=== PATIENT | female | born 1995 | race Two or more races ===

== ENCOUNTER 2017-04-25 00:17 | Emergency (ER) | payer MEDICAID ==
[~2017-04-25] VITALS: Ht 167.6 cm; Wt 86.2 kg
[~2017-04-25 00:17] MED LIST: ALBUTEROL SULF8.5 GM INH; AZITHROMYCIN250 MG ORAL; DOXYCYCLINE MO100 MG ORAL; GUAIFENESIN-CO118 M1 PO; IBUPROFEN600 MG ORAL; PENICILLIN V P500 MG PO; PREDNISONE20 MG ORAL; PREDNISONE50 MG ORAL
[2017-04-25] MEDS ORDERED: Naproxen 500mg tab ORAL ONE (01:00)
[2017-04-25 01:55] LABS: EOSINOPHILS % (AUTO) 1.3 % (0.0-3.0); MEAN CORPUSCULAR HEMOGLOBIN 28.5 PG (27.0-31.0); MEAN CORPUSCULAR HGB CONC 33.1 G/DL (32.0-36.0); MEAN CORPUSCULAR VOLUME 86 FL (80-99); MEAN PLATELET VOLUME 6.3 FL (6.5-10.1); MONOCYTES % (AUTO) 6.8 % (1.0-10.0); NEUTROPHILS % (AUTO) 66.9 % (45.0-75.0); PLATELET COUNT 371 K/UL (150-450); RED BLOOD COUNT 4.54 M/UL (4.20-5.40); RED CELL DISTRIBUTION WIDTH 12.5 % (11.6-14.8); WHITE BLOOD COUNT 9.7 K/UL (4.8-10.8)
[2017-04-25 02:03] LABS: KETONES,URINE NEGATIVE (NEGATIVE); LEUKOCYTE ESTERASE ,URINE 1+ (NEGATIVE); NITRITE,URINE NEGATIVE (NEGATIVE); PH,URINE 6 (4.5-8.0); PROTEIN,URINE NEGATIVE (NEGATIVE); UROBILINOGEN,URINE 1 MG/DL (0.0-1.0)
[2017-04-25 02:05] LABS: APPEARANCE,URINE CLEAR
[2017-04-25 02:07] LABS: ALANINE AMINOTRANSFERASE 19 U/L (3-33); ALBUMIN/GLOBULIN RATIO 1.2 (1.0-2.7); ANION GAP 13 (5-15); ASPARTATE AMINO TRANSFERASE 15 U/L (5-40); CALCIUM 9.4 mg/dL (8.6-10.2); CARBON DIOXIDE 25 mEQ/L (20-30); CHLORIDE 97 mEQ/L (98-107); CREATININE 0.8 mg/dL (0.5-0.9); GLOMERULAR FILTRATION RATE > 60 mL/min (>60); HEMOLYSIS 7; POTASSIUM 3.9 mEQ/L (3.4-4.9); SODIUM 135 mEQ/L (135-145); TOTAL PROTEIN 7.9 g/dL (6.6-8.7); URIC ACID 5.6 mg/dL (3.0-7.5)
[2017-04-25 02:08] LABS: BACTERIA,URINE FEW /HPF; RBC,URINE 0-2 /HPF (0 - 2); SQUAMOUS EPITHELIAL CELL,UR FEW /LPF (NONE/OCC)
[2017-04-25 03:01] LABS: ERYTHROCYTE SEDIMENTATION RATE 26 MM/HR (0-20)
--- NOTE | 2017-04-25 03:23 | Emergency Room Report ---
History of Present Illness General Chief Complaint: Pain Source: Patient Present Illness HPI Patient with 3 weeks of bone pain in mainly arms, but also legs. Also some fatigue. No fevers. No rashes. No abdominal, chest pain. No dyspnea. Moving bowels normally. Pain is 5/10, constant. No radiation, aching. Normal period. No h/o diabetes. No thyroid problems known. Studying for medicine. Concern over critical illness which would prevent from achieving this. Has anxiety. H/O asthma which has been stable. Allergies: Coded Allergies: No Known Allergies (Unverified , 03/02/13) Patient History Past Medical History: see triage record Social History: Denies: alcohol use, drug use, smoking Social History Narrative student Last Menstrual Period: 04/11/17 Now: No : 0 Para: 0 Reviewed Nursing Documentation: PMH: Agreed, PSxH: Agreed Nursing Documentation-PMH Hx Asthma: Yes Review of Systems All Other Systems: negative except mentioned in HPI Physical Exam Vital Signs Date Time Temp Pulse Resp B/P Pulse Ox O2 Delivery O2 Flow Rate FiO2 04/25/17 00:42 98.2 92 14 134/70 99 Sp02 EP Interpretation: reviewed, normal General Appearance: well appearing, no apparent distress, GCS 15 Head: normocephalic, atraumatic Eyes: bilateral eye PERRL, bilateral eye normal inspection ENT: moist mucus membranes Neck: supple Respiratory: lungs clear, normal breath sounds Cardiovascular #1: regular rate, rhythm Cardiovascular #2: 2+ radial (R) Gastrointestinal: normal inspection, normal bowel sounds, non tender, no mass, non-distended Musculoskeletal: back normal, gait/station normal, normal range of motion Neurologic: alert, oriented x3, 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 Differential is broad. Inflammatory arthritis , viral syndrome, electrolyte abnormality (calcium/potassium), occult infection , diabetes, thyroid disorders, renal dysfunction, anxiety/depression amongst others. Evaluation with labs and UA. Labs normal except for minimally elevated ESR. Discussed possible etiologies. Re-assured, but told needs further w/u. Discussed with mother also. Patient stable for outpatient observation and treatment. Laboratory Tests Test 04/25/17 01:30 04/25/17 01:40 Urine Color Yellow Urine Appearance Clear Urine pH 6 (4.5-8.0) Urine Specific [place] 1.020 (1.005-1.035) Urine Protein Negative (NEGATIVE) Urine Glucose (UA) Negative (NEGATIVE) Urine Ketones Negative (NEGATIVE) Urine Occult Blood Negative (NEGATIVE) Urine Nitrite Negative (NEGATIVE) Urine Bilirubin Negative (NEGATIVE) Urine Urobilinogen 1 MG/DL (0.0-1.0) H Urine Leukocyte Esterase 1+ (NEGATIVE) H Urine RBC 0-2 /HPF (0 - 2) Urine WBC 2-4 /HPF (0 - 2) Urine Squamous Epithelial Cells Few /LPF (NONE/OCC) Urine Bacteria Few /HPF (NONE) Urine HCG, Qualitative Negative Urine Opiates Screen Negative (NEGATIVE) Urine Barbiturates Screen Negative (NEGATIVE) Phencyclidine (PCP) Screen Negative (NEGATIVE) Urine Amphetamines Screen Negative (NEGATIVE) Urine Benzodiazepines Screen Negative (NEGATIVE) Urine Cocaine Screen Negative (NEGATIVE) Urine Marijuana (THC) Screen Negative (NEGATIVE) White Blood Count 9.7 K/UL (4.8-10.8) Red Blood Count 4.54 M/UL (4.20-5.40) Hemoglobin 12.9 G/DL (12.0-16.0) Hematocrit 39.0 % (37.0-47.0) Mean Corpuscular Volume 86 FL (80-99) Mean Corpuscular Hemoglobin 28.5 PG (27.0-31.0) Mean Corpuscular Hemoglobin Concent 33.1 G/DL (32.0-36.0) Red Cell Distribution Width 12.5 % (11.6-14.8) Platelet Count 371 K/UL (150-450) Mean Platelet Volume 6.3 FL (6.5-10.1) L Neutrophils (%) (Auto) 66.9 % (45.0-75.0) Lymphocytes (%) (Auto) 24.0 % (20.0-45.0) Monocytes (%) (Auto) 6.8 % (1.0-10.0) Eosinophils (%) (Auto) 1.3 % (0.0-3.0) Basophils (%) (Auto) 1.0 % (0.0-2.0) Erythrocyte Sedimentation Rate 26 MM/HR (0-20) H Sodium Level 135 mEQ/L (135-145) Potassium Level 3.9 mEQ/L (3.4-4.9) Chloride Level 97 mEQ/L (98-107) L Carbon Dioxide Level 25 mEQ/L (20-30) Anion Gap 13 (5-15) Blood Urea Nitrogen 14 mg/dL (7-23) Creatinine 0.8 mg/dL (0.5-0.9) Estimate Glomerular Filtration Rate > 60 mL/min (>60) Glucose Level 116 mg/dL (74-106) H Uric Acid 5.6 mg/dL (3.0-7.5) Calcium Level 9.4 mg/dL (8.6-10.2) Total Bilirubin < 0.2 mg/dL (0.0-1.2) Aspartate Amino Transferase (AST) 15 U/L (5-40) Alanine Aminotransferase (ALT) 19 U/L (3-33) Alkaline Phosphatase 79 U/L (35-104) Total Creatine Kinase 69 U/L (26-140) C-Reactive Protein, Quantitative 1.0 mg/dL (< 0.5) H Total Protein 7.9 g/dL (6.6-8.7) Albumin 4.4 g/dL (3.5-5.2) Globulin 3.5 g/dL Albumin/Globulin Ratio 1.2 (1.0-2.7) Thyroid Stimulating Hormone (TSH) 2.430 uIU/mL (0.300-4.500) Chest X-Ray Diagnostic Results Chest X-Ray Diagnostic Results : Chest X-Ray Ordered: Yes # of Views/Limited/Complete: 1 View Indication: Other EP Interpretation: Yes Interpretation: no consolidation, no effusion, no pneumothorax, no acute cardiopulmonary disease Impression: No acute disease Interpreting ER Provider: Electronically signed by Cristhian Slade MD Last Vital Signs Date Time Temp Pulse Resp B/P Pulse Ox O2 Delivery O2 Flow Rate FiO2 04/25/17 03:51 98.3 73 14 134/70 99 Status: improved Disposition: HOME, SELF-CARE Condition: Improved Scripts Tramadol Hcl* (ULTRAM*) 50 Mg Tablet 50 MG ORAL Q6H Y for For Pain, #10 TAB 0 Refills Prov: Cristhian Slade M.D. 04/25/17 Naproxen* (NAPROSYN*) 375 Mg Tablet 375 MG ORAL TID, #20 TAB 0 Refills Prov: Cristhian Slade M.D. 04/25/17 Referrals: NON PHYSICIAN (PCP) Cristhian Slade M.D. Apr 25, 2017 03:23
[2017-04-25] MEDS ORDERED: NAPROXEN375 MG ORAL (03:27)
[2017-04-25] MEDS ORDERED: TRAMADOL HCL50 MG ORAL (03:27)
[2017-04-25 03:48] VITALS: BP 134/70
[2017-04-25 03:51] VITALS: BP 134/70
--- NOTE | 2017-04-25 09:23 | Diagnostic Imaging Report ---
Indication: CP Technique: XRAY CHEST 1 V Comparison: 01/23/2014. Findings: The cardiomediastinal silhouette is normal. The lungs are clear. There is no evidence of pleural fluid. The bones are unremarkable. Impression: Normal chest.
== END 2017-04-25 03:52 | disposition home or self-care (01) ==
LOC: EMR 01:10
DX: M89.8X9 Other specified disorders of bone, unspecified site (principal); R53.83 Other fatigue; J45.909 Unspecified asthma, uncomplicated
CPT/HCPCS: 36415; 71010; 80053; 80300; 81003; 81025; 82550; 84443; 84550; 85025; 85651; 86140; 99284

== ENCOUNTER 2017-09-16 22:54 | Emergency (ER) | payer MEDICAID ==
[~2017-09-16] VITALS: Ht 167.6 cm; Wt 90.7 kg
[~2017-09-16 22:54] MED LIST changes: +NAPROXEN375 MG ORAL; +TRAMADOL HCL50 MG ORAL
[2017-09-16 23:25] VITALS: BP 130/83
--- NOTE | 2017-09-16 23:37 | Emergency Room Report ---
History of Present Illness General Chief Complaint: Abdominal Pain Source: Patient Present Illness HPI Is a 21-year-old female with no past medical history patient present with chief complaint of abdominal pain. Localized to the left lower caught in/pelvic area. Onset for last couple months. Seen her DrNita and urine was normal. She was given ibuprofen is not helping. Worse when he try to urinate. Has pressure to urinate but doesn't feel that she can't completely empty her bladder. When she tried hold her urine she has pain. Allergies: Coded Allergies: No Known Allergies (Unverified , 03/02/13) Patient History Past Medical History: see triage record, old chart reviewed Past Surgical History: none Pertinent Family History: none Social History: Denies: smoking Last Menstrual Period: Aug Now: No Immunizations: other Reviewed Nursing Documentation: PMH: Agreed, PSxH: Agreed Nursing Documentation-PMH Hx Asthma: Yes Review of Systems Eye: Denies: eye pain, blurred vision ENT: Denies: ear pain, nose congestion, throat swelling Respiratory: Denies: cough, shortness of breath Cardiovascular: Denies: chest pain, palpitations Gastrointestinal: Reports: abdominal pain, Denies: diarrhea, nausea, vomiting Musculoskeletal: Denies: back pain, joint pain Skin: Denies: rash Neurological: Denies: headache, numbness Endocrine: Denies: increased thirst, increased urine Hematologic/Lymphatic: Denies: easy bruising All Other Systems: negative except mentioned in HPI Physical Exam Vital Signs Date Time Temp Pulse Resp B/P (MAP) Pulse Ox O2 Delivery O2 Flow Rate FiO2 09/16/17 23:14 98.1 101 16 130/83 98 Room Air vitals normal Sp02 EP Interpretation: reviewed, normal General Appearance: well appearing, no apparent distress, alert Head: normocephalic, atraumatic Eyes: bilateral eye PERRL, bilateral eye EOMI ENT: hearing grossly normal, normal pharynx Neck: full range of motion, supple, no meningismus Respiratory: chest non-tender, lungs clear, normal breath sounds Cardiovascular #1: regular rate, rhythm, no murmur Gastrointestinal: normal bowel sounds, no mass, no organomegaly, no bruit, non- distended, tenderness - Left lower quadrant Musculoskeletal: back normal, gait/station normal, normal range of motion Psychiatric: mood/affect normal Skin: warm/dry Medical Decision Making Diagnostic Impression: Primary Impression: Abdominal pain Qualified Codes: R10.30 - Lower abdominal pain, unspecified Additional Impression: Ovarian cyst Qualified Codes: N83.202 - Unspecified ovarian cyst, left side ER Course Patient with abdominal pain. No evidence of acute abdomen. No evidence of torsion. No ectopic. She does have an ovarian cyst that is probably causing the pain. Better now. We'll discharge home. Lab Results Impression labs normal CT/MRI/US Diagnostic Results CT/MRI/US Diagnostic Results : Imaging Test Ordered: CT abdomen and pelvis Impression Read by radiologist. 4 cm left ovarian cyst. Last Vital Signs Date Time Temp Pulse Resp B/P (MAP) Pulse Ox O2 Delivery O2 Flow Rate FiO2 09/16/17 23:14 98.1 101 16 130/83 98 Room Air Status: improved Disposition: HOME, SELF-CARE Condition: Stable Scripts Ibuprofen* (MOTRIN*) 600 Mg Tablet 600 MG ORAL THREE TIMES A DAY, #30 TAB 0 Refills Prov: JUAN MIGUEL RODRIGUEZ M.D. 09/17/17 Additional Instructions: Followup with your DrNita in 7 days. Return if worse. JUAN MIGUEL RODRIGUEZ M.D. Sep 16, 2017 23:37
[2017-09-16 23:52] LABS: APPEARANCE,URINE SLIGHTLY CLOUDY; KETONES,URINE NEGATIVE (NEGATIVE); LEUKOCYTE ESTERASE ,URINE 1+ (NEGATIVE); NITRITE,URINE NEGATIVE (NEGATIVE); PH,URINE 6 (4.5-8.0); PROTEIN,URINE 1+ (NEGATIVE); UROBILINOGEN,URINE 4 MG/DL (0.0-1.0)
[2017-09-16 23:53] LABS: BASOPHILS % (AUTO) 1.6 % (0.0-2.0); EOSINOPHILS % (AUTO) 1.7 % (0.0-3.0); LYMPHOCYTES % (AUTO) 23.6 % (20.0-45.0); MEAN CORPUSCULAR HEMOGLOBIN 27.4 PG (27.0-31.0); MEAN CORPUSCULAR HGB CONC 32.7 G/DL (32.0-36.0); MEAN CORPUSCULAR VOLUME 84 FL (80-99); MEAN PLATELET VOLUME 5.8 FL (6.5-10.1); MONOCYTES % (AUTO) 7.5 % (1.0-10.0); NEUTROPHILS % (AUTO) 65.5 % (45.0-75.0); PLATELET COUNT 384 K/UL (150-450); RED BLOOD COUNT 4.82 M/UL (4.20-5.40); RED CELL DISTRIBUTION WIDTH 12.9 % (11.6-14.8); WHITE BLOOD COUNT 11.3 K/UL (4.8-10.8)
[2017-09-17 00:03] LABS: ANION GAP 11 mmol/L (5-15); CALCIUM 9.3 MG/DL (8.5-10.1); CARBON DIOXIDE 26 MMOL/L (21-32); CHLORIDE 102 MMOL/L (98-107); CREATININE 0.9 MG/DL (0.55-1.30); GLOMERULAR FILTRATION RATE > 60 mL/min (>60); POTASSIUM 3.9 MMOL/L (3.5-5.1); SODIUM 139 MMOL/L (136-145)
[2017-09-17 00:07] LABS: ALANINE AMINOTRANSFERASE 50 U/L (12-78); ALBUMIN/GLOBULIN RATIO 0.8 (1.0-2.7); ASPARTATE AMINO TRANSFERASE 39 U/L (15-37); LIPASE 220 U/L (73-393); TOTAL PROTEIN 8.5 G/DL (6.4-8.2)
[2017-09-17 00:11] LABS: BACTERIA,URINE OCCASIONAL /HPF; MUCUS,URINE MODERATE /LPF (NONE/OCC); RBC,URINE 0-2 /HPF (0 - 2); SQUAMOUS EPITHELIAL CELL,UR OCCASIONAL /LPF (NONE/OCC)
[2017-09-17] MEDS ORDERED: IBUPROFEN600 MG ORAL (01:25)
[2017-09-17 01:44] VITALS: BP 119/65
[2017-09-17 01:48] VITALS: BP 119/65
--- NOTE | 2017-09-17 10:20 | Diagnostic Imaging Report ---
Indication: Abdominal pain Technique: CT scan of the abdomen and pelvis utilizing automated exposure control without intravenous or oral contrast. Axial, sagittal and coronal images were obtained. CT dose: Total DLP 1167 mGycm; CTDI vol 21.4 mGy Comparison: None Findings: Evaluation of the solid organs is limited without intravenous contrast material. There is minimal atelectasis of the lung bases. The liver, adrenal glands, spleen and pancreas are unremarkable. No CT evident gallstones are seen. There is no hydronephrosis. No renal or ureteral calculi are identified. The small bowel loops are normal in caliber. The appendix is normal. There is no free intraperitoneal fluid or air. There is a left adnexal 4.4 cm cystic structure. Uterus and right adnexa are grossly unremarkable. Bladder is not well distended limiting evaluation. Endplate Schmorl's nodes of the spine are noted. Mesenteric nodes measure up to 1.5 cm. Impression: No hydronephrosis, renal or ureteral calculi. Approximately 4.4 cm left ovarian cystic structure. Correlation with ultrasound recommended. Gastric distention with debris. Clinical correlation recommended. Mesenteric nodes measuring up to 1.5 cm. Clinical correlation recommended. The CT scanner at [facility] is accredited by the [employer] and the scans are performed using protocols designed to limit radiation exposure to as low as reasonably achievable to attain images of sufficient resolution adequate for diagnostic evaluation.
== END 2017-09-17 01:45 | disposition home or self-care (01) ==
LOC: EMR 23:59
DX: R10.9 Unspecified abdominal pain (principal); N83.202 Unspecified ovarian cyst, left side
CPT/HCPCS: 36415; 74176; 80053; 81003; 81025; 83690; 85025; 99284

== ENCOUNTER 2019-10-02 16:18 | Emergency (ER) | payer SELFPAY ==
[~2019-10-02] VITALS: Ht 167.6 cm; Wt 95.3 kg
[2019-10-02 16:40] VITALS: BP 115/71
[2019-10-02] MEDS ORDERED: Albuterol ud Inhalation HHN ONE (16:45)
--- NOTE | 2019-10-02 16:48 | Emergency Room Report ---
History of Present Illness General Chief Complaint: Upper Respiratory Illness Source: Patient Present Illness HPI 24-year-old female presents with constant cough for 3 weeks. Cough is dry and sometimes results in posttussive vomiting, nonbloody. She also reports some shortness of breath while coughing, rhinorrhea, and congestion in her ears. She denies any fever, chest pain, abdominal pain, sore throat, hemoptysis, recent travel or surgery, calf pain or swelling. Denies smoking or vaping. Patient reports that she has been dealing with these symptoms her whole life on and off. She has seen a farm mechanic apprentice and been treated with inhalers in the past but has never formally been diagnosed with asthma. She is supposed to see an avid editor but has not yet. She has used her inhaler and [id number] medications with no relief. Patient is currently on her period, denies chance of . Allergies: Coded Allergies: No Known Allergies (Unverified , 03/02/13) Patient History Past Medical History: see triage record Now: No Reviewed Nursing Documentation: PMH: Agreed; PSxH: Agreed Nursing Documentation-PMH Past Medical History: No Stated History Hx Asthma: Yes Review of Systems All Other Systems: negative except mentioned in HPI Physical Exam Vital Signs Date Time Temp Pulse Resp B/P (MAP) Pulse Ox O2 Delivery O2 Flow Rate FiO2 10/02/19 16:12 98.4 97 19 151/83 (105) 100 Room Air Sp02 EP Interpretation: reviewed, normal General Appearance: no apparent distress, alert, GCS 15, non-toxic Head: normocephalic, atraumatic Eyes: bilateral eye normal inspection, bilateral eye PERRL ENT: hearing grossly normal, normal pharynx, no angioedema, normal voice Neck: full range of motion, supple/symm/no masses Respiratory: chest non-tender, lungs clear, normal breath sounds, no respiratory distress, no accessory muscle use, speaking full sentences Cardiovascular #1: regular rate, rhythm, no edema Neurologic: alert, oriented x3, responsive, speech normal Psychiatric: judgement/insight normal, mood/affect normal Lymphatic: no adenopathy Medical Decision Making PA Attestation Dr. Flores is my supervising physician whom patient management and care has been discussed with. Diagnostic Impression: Primary Impression: Cough ER Course Pt. presents to the ED c/o cough for 3 weeks. Ddx considered but are not limited to bronchitis, pneumonia, postnasal drip, asthma Vital signs: are WNL, pt. is afebrile H&PE are most consistent with chronic cough ORDERS: Chest x-ray shows no evidence of acute disease. ED INTERVENTIONS: Given albuterol nebulizer treatment with some relief. DISCHARGE: At this time pt. is stable for d/c to home. Will provide printed patient care instructions, and prescriptions for Prednisone and Phenergan DM. Advised to follow up with PCP for further evaluation and treatment. Care plan and follow up instructions have been discussed with the patient prior to discharge. Return precautions given. Chest X-Ray Diagnostic Results Chest X-Ray Diagnostic Results : Chest X-Ray Ordered: Yes # of Views/Limited/Complete: 2 View Indication: Other - cough EP Interpretation: Yes RICKY Xray: Interpretation reviewed, by supervising MD, and agrees with findings. Interpretation: no consolidation, no effusion, no pneumothorax, no acute cardiopulmonary disease Impression: No acute disease Electronically Signed by: Ivelisse Sheppard PA-C Last Vital Signs Date Time Temp Pulse Resp B/P (MAP) Pulse Ox O2 Delivery O2 Flow Rate FiO2 10/02/19 16:12 98.4 97 19 151/83 (105) 100 Room Air Disposition: HOME, SELF-CARE Condition: Stable Scripts Benzonatate* (BENZONATATE*) 200 Mg Capsule 200 MG ORAL THREE TIMES A DAY, #30 PERLE Prov: Ivelisse Sheppard N. P.A. 10/02/19 Prednisone* (PREDNISONE*) 20 Mg Tablet 20 MG ORAL TID, #15 TAB 0 Refills Prov: Ivelisse Sheppard P.A. 10/02/19 D-Methorphan Hb/Prometh Hcl* (PROMETHAZINE-DM SYRUP*) 118 Ml Syrup 5 ML ORAL Q4H PRN for For Cough, #120 ML 0 Refills Prov: Ivelisse Sheppard N. P.A. 10/02/19 Referrals: NOT CHOSEN [facility]/,REFERRING (PCP) Ivelisse Sheppard P.ANita Oct 02, 2019 16:48
--- NOTE | 2019-10-02 17:08 | Diagnostic Imaging Report ---
Indication: Reason For Exam: COUGH Technique: One view of the chest Comparison: none Findings: Lungs and pleural spaces are clear. Heart size is normal. Azygos lobe and fissure-normal anatomic variant-incidentally noted. No significant interim change Impression: No acute process
[2019-10-02] MEDS ORDERED: PROMETHAZINE-D118 ML ORAL (17:19)
[2019-10-02] MEDS ORDERED: PREDNISONE20 MG ORAL (17:19)
[2019-10-02] MEDS ORDERED: BENZONATATE200 MG ORAL (17:41)
[2019-10-02] MEDS ORDERED: Promethazine/Codeine 5ml UD ORAL ONE (18:00)
[2019-10-02 18:10] VITALS: BP 128/81
== END 2019-10-02 18:10 | disposition home or self-care (01) ==
LOC: EDBD 16:18 → EMR 16:28
DX: R05 Cough (principal); R11.10 Vomiting, unspecified
CPT/HCPCS: 71045; 99284; J7512

== ENCOUNTER 2020-06-10 04:20 | Emergency (ER) | payer MEDICAID ==
[~2020-06-10] VITALS: Ht 165.1 cm; Wt 104.3 kg
[~2020-06-10 04:20] MED LIST changes: +BENZONATATE200 MG ORAL; +PROMETHAZINE-D118 ML ORAL
[2020-06-10 04:40] VITALS: BP 113/74
--- NOTE | 2020-06-10 04:40 | NUR ---
ED Nurse Note: Patient walked into ED c/o throat tightness for an unknown time now, states that this problem has been presistent and has seen multiple doctors for it however states that the problem still has not resolved, complains of no pain at this time. patient satting at 100% on room air and is able to swallow. exam was done by ERMMarj at bedside states that throat is not closing up and patient's lungs are clear. patient is alert and oriented x4, will wait for further orders
[2020-06-10 05:05] VITALS: BP 122/70
--- NOTE | 2020-06-10 05:05 | NUR ---
AMA: Patient has signed AMA form. patient understands the risks of leaving AMA such as . patient is fully aware. Dr. Junior at bedside to explain. patient ambulated out of ED accompanied by brother, ambulated with a steady gait.patient has taken all belongings
--- NOTE | 2020-06-13 15:23 | Emergency Room Report ---
History of Present Illness General Chief Complaint: Upper Respiratory Illness Source: Patient Present Illness HPI 24-year-old female presents the ED complaining of shortness of breath. Describes tightness in her throat and difficulty breathing. Denies any cough. Denies any fevers or chills. States she has been told she has asthma and has used inhalers in the past. Denies sick contacts or recent travel. Denies leg swelling. Denies chest pain. No other aggravating relieving factors. 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 Patient History Past Medical History: asthma Past Surgical History: none Pertinent Family History: none Social History: Denies: smoking, alcohol use, drug use Last Menstrual Period: 04/2020 Now: No Immunizations: UTD Reviewed Nursing Documentation: PMH: Agreed; PSxH: Agreed Nursing Documentation-PMH Hx Asthma: Yes - chronic cough Review of Systems All Other Systems: negative except mentioned in HPI Physical Exam Vital Signs Date Time Temp Pulse Resp B/P (MAP) Pulse Ox O2 Delivery O2 Flow Rate FiO2 06/10/20 04:27 98.8 100 18 113/74 (87) 96 Room Air Sp02 EP Interpretation: reviewed, normal General Appearance: no apparent distress, alert, GCS 15, non-toxic Head: normocephalic, atraumatic Eyes: bilateral eye normal inspection, bilateral eye PERRL ENT: hearing grossly normal, normal pharynx, no angioedema, normal voice Neck: full range of motion, supple/symm/no masses Respiratory: chest non-tender, lungs clear, normal breath sounds, speaking full sentences Cardiovascular #1: regular rate, rhythm, no edema Cardiovascular #2: 2+ carotid (R), 2+ carotid (L), 2+ radial (R), 2+ radial (L) , 2+ dorsalis pedis (R), 2+ dorsalis pedis (L) Gastrointestinal: normal bowel sounds, non tender, soft, non-distended, no guarding, no rebound Rectal: deferred Genitourinary: normal inspection, no CVA tenderness Musculoskeletal: back normal, normal range of motion, gait/station normal, non- tender Neurologic: alert, motor strength/tone normal, oriented x3, sensory intact, responsive, speech normal Psychiatric: judgement/insight normal, memory normal, mood/affect normal, no suicidal/homicidal ideation Reflexes: 3+ bicep (R), 3+ bicep (L), 3+ tricep (R), 3+ tricep (L), 3+ knee (R) , 3+ knee (L) Lymphatic: no adenopathy Medical Decision Making Diagnostic Impression: Primary Impression: Upper respiratory infection Qualified Codes: J06.9 - Acute upper respiratory infection, unspecified ER Course Hospital Course 24 yo F presents to ED c/o SOB, throat swelling Differential diagnoses include: URI, pharyngitis, otitis media, asthma Clinical course Patient placed on stretcher. After initial history, physical exam reveals a young female in no acute distress. Bilateral TM unremarkable. No pharyngeal erythema. No tonsillar exudates. No lymphadenopathy. lungs clear. no stridor Reviewed findings with patient. Physical exam unremarkable. Vitals stable. No labored, difficulty with speaking full sentences. This that there is something wrong. I reviewed EMR. Patient has been here multiple times for asthma type symptoms. Also has been here for anxiety. Patient denies anxiety. Patient is requesting breathing treatment. I explained that due to COVID-19 we will require a COVID swab prior to breathing treatment. Patient refuses. Patient states she wishes to go home. Understands the risks of leaving. Patient has competency to make her own decisions. Signed AMA form. Diagnosis - URI patient left AMA Last Vital Signs Date Time Temp Pulse Resp B/P (MAP) Pulse Ox O2 Delivery O2 Flow Rate FiO2 06/10/20 05:05 98.5 80 18 122/70 100 Room Air Status: unchanged Disposition: AGAINST MEDICAL ADVICE Condition: Unknown [facility]errals: [facility],REFERRING (PCP) Sinan Junior MD Jun 13, 2020 15:23
== END 2020-06-10 05:05 | disposition left against medical advice (07) ==
LOC: EMR 04:38
DX: J06.9 Acute upper respiratory infection, unspecified (principal)
CPT/HCPCS: 99282